=== PATIENT | male | born 1990 | race Hispanic/Latino ===

== ENCOUNTER 2018-03-03 16:16 | Emergency (ER) | payer OTHER | END 2018-03-03 17:03 | disposition home or self-care (01) | LOC: EDH 16:16 | DX: S09.21XA Traumatic rupture of right ear drum, initial encounter (principal); Z98.890 Other specified postprocedural states; Y08.89XA Assault by other specified means, initial encounter; Y93.89 Activity, other specified; Y92.89 Other specified places as the place of occurrence of the external cause; Y99.8 Other external cause status | CPT/HCPCS: 99281 ==